=== PATIENT | male | born 1990 | race Caucasian/White ===

== ENCOUNTER 2025-07-12 10:45 | Emergency (ER) | payer OTHER ==
[~2025-07-12] VITALS: Ht 170.2 cm; Wt 81.0 kg
[2025-07-12 10:54] VITALS: O2SAT 99
[2025-07-12] MEDS: IBUPROFEN 600MG TABLET PO ONE (11:49)
[2025-07-12] MEDS: TETANUS, DIPHTHERIA, PERTUSSIS VAC/PF 0.5ML (>10YR OLD) IM ONE (12:45)
[2025-07-12] MEDS: LIDOCAINE HCL 1% 20ML VIAL INL ONE (12:48)
[2025-07-12] MEDS: BACITRACIN ZINC OINT UDPKT TOP ONE (12:48)
[2025-07-12] MEDS ORDERED: BO1 TP (14:15)
[2025-07-12 15:07] VITALS: BP 120/73; PULSE 61; RESP 16; TEMP 36.7; O2SAT 100
== END 2025-07-12 15:09 | disposition home or self-care (01) ==
LOC: ER 10:45
DX: S61.412A Laceration without foreign body of left hand, initial encounter (principal); X58.XXXA Exposure to other specified factors, initial encounter; Y93.89 Activity, other specified; Y92.89 Other specified places as the place of occurrence of the external cause; Y99.8 Other external cause status
CPT/HCPCS: 99283; 73130; 90715; 12001; 90471; J2003; 96372